=== PATIENT | male | born 1995 | race Caucasian/White ===

== ENCOUNTER 2019-01-23 09:37 | Emergency (ER) | payer OTHER ==
[~2019-01-23] VITALS: Ht 170.1 cm; Wt 81.6 kg
[~2019-01-23 09:37] MED LIST: CEFADROXIL500 M1 PO
[2019-01-23] MEDS ORDERED: CIPRO500 MG PO (10:10)
[2019-01-23] MEDS ORDERED: IBUPROFEN600 MG PO (10:10)
== END 2019-01-23 11:08 | disposition home or self-care (01) ==
LOC: ED 09:37
DX: S91.331A Puncture wound without foreign body, right foot, initial encounter (principal); W22.8XXA Striking against or struck by other objects, initial encounter; Y93.89 Activity, other specified; Y92.89 Other specified places as the place of occurrence of the external cause; Y99.8 Other external cause status